=== PATIENT | female | born 1990 | race Caucasian/White ===

== ENCOUNTER 2016-06-28 10:56 | Outpatient (CLI) | payer OTHER ==
[2016-06-28 11:41] LABS: AMNI LOT 5540986
[2016-06-28 11:47] VITALS: BP 124/74
[2016-06-28 11:58] LABS: AMNI OBC PASS; AMNISURE NEGATIVE (NEGATIVE)
== END 2016-06-28 14:06 | disposition home or self-care (01) ==
LOC: LDOP 10:56
PROVIDERS: ATTEND Obstetrics & Gynecology
DX: O26.893 Other specified pregnancy related conditions, third trimester (principal); R10.9 Unspecified abdominal pain; R19.7 Diarrhea, unspecified; R11.0 Nausea; Z3A.36 36 weeks gestation of pregnancy; Z87.891 Personal history of nicotine dependence
CPT/HCPCS: 59025; 81001; 84112; 87086; 87324; 99211; G0463

== ENCOUNTER 2016-07-14 10:49 | Outpatient (CLI) | payer OTHER ==
[~2016-07-14] VITALS: Ht 172.7 cm; Wt 104.5 kg
[2016-07-14 11:25] VITALS: BP 127/84
== END 2016-07-14 13:00 | disposition home or self-care (01) ==
LOC: LDOP 10:49
PROVIDERS: ATTEND Obstetrics & Gynecology
DX: O26.893 Other specified pregnancy related conditions, third trimester (principal); R10.9 Unspecified abdominal pain; O62.9 Abnormality of forces of labor, unspecified; Z3A.39 39 weeks gestation of pregnancy
CPT/HCPCS: 59025; 81001; 87086; 99211; G0463

== ENCOUNTER 2016-07-21 01:38 | Outpatient (CLI) | payer OTHER ==
[~2016-07-21] VITALS: Ht 172.7 cm; Wt 104.5 kg
[2016-07-21 01:45] VITALS: BP 134/90
[2016-07-21] MEDS ORDERED: MEPERIDINE/PF 100 MG/ML IM PRN (02:00)
[2016-07-21] MEDS ORDERED: PROMETHAZINE 25 MG/ML, 1ML IM ONE (02:00)
[2016-07-21] MEDS ORDERED: MEPERIDINE/PF 100 MG/ML ONE (02:06)
[2016-07-21] MEDS ORDERED: PROMETHAZINE 25 MG/ML, 1ML ONE (02:06)
== END 2016-07-21 02:30 | disposition home or self-care (01) ==
LOC: LDOP 01:38
PROVIDERS: ATTEND Obstetrics & Gynecology
DX: O26.893 Other specified pregnancy related conditions, third trimester (principal); R10.9 Unspecified abdominal pain; O62.9 Abnormality of forces of labor, unspecified; Z3A.39 39 weeks gestation of pregnancy
CPT/HCPCS: 59025; 99211; J2175; J2550; G0463

== ENCOUNTER 2016-07-26 10:12 | Inpatient (IN) | payer OTHER ==
[~2016-07-26] VITALS: Ht 172.7 cm; Wt 104.5 kg
[2016-07-26 10:57] VITALS: BP 142/91
[2016-07-26 11:36] LABS: ASPARTATE AMINO TRANSFERASE 43 U/L (15-37); BLOOD UREA NITROGEN 11 mg/dL (7-18)
[2016-07-26] MEDS ORDERED: LIDOCAINE 1%, 20ML ONE (12:31)
[2016-07-26] MEDS ORDERED: NEWBORN KIT ONE (12:31)
[2016-07-26] MEDS ORDERED: MISOPROSTOL 200 MCG TABLET ONE (12:31)
[2016-07-26] MEDS ORDERED: OXYTOCIN 30U/ 0.9% NaCL 500ML 500 ML ONE (12:32)
[2016-07-26] MEDS ORDERED: OXYTOCIN 30U/ 0.9% NaCL 500ML 500 ML IV ONE (12:34)
[2016-07-26] MEDS ORDERED: FENTANYL PF 100 MCG/2ML IV PRN (13:00)
[2016-07-26] MEDS ORDERED: TERBUTALINE 1 MG/ML, 1ML IVPush PRN (13:00)
[2016-07-26] MEDS ORDERED: METOCLOPRAMIDE 5 MG/ML, 2ML IVPush PRN (13:00)
[2016-07-26] MEDS ORDERED: FENTANYL PF 100 MCG/2ML IVPush PRN (13:00)
[2016-07-26] MEDS ORDERED: ONDANSETRON 2MG/ML, 2ML IVPush PRN (13:00)
[2016-07-26] MEDS ORDERED: SODIUM CITRATE/CITRIC ACID 30 ML UDC PO PRN (13:00)
[2016-07-26] MEDS ORDERED: SODIUM CHLORIDE FLUSH 10ML SYR IVF PRN (13:00)
[2016-07-26] MEDS ORDERED: PREN1TAB69 PO (13:50)
[2016-07-26] MEDS: LACTATED RINGERS 1,000 ML IV SCH ×3 (16:43→17:38)
[2016-07-26] MEDS ORDERED: FENTANYL/BUPIV./NS/PF 250 ML EPIDCONT ONE (17:36)
[2016-07-26] MEDS ORDERED: FENTANYL/BUPIV./NS/PF 250 ML EPIDCONT SCH (17:38)
[2016-07-26 17:57] LABS: ASPARTATE AMINO TRANSFERASE 45 U/L (15-37); BLOOD UREA NITROGEN 10 mg/dL (7-18)
[2016-07-26] MEDS ORDERED: LACTATED RINGERS 1,000 ML IVBOLUS PRN (18:00)
[2016-07-26] MEDS ORDERED: EPHEDRINE 50 MG/ML, 1ML IVPush PRN (18:00)
[2016-07-26] MEDS ORDERED: NALOXONE 0.4 MG/ML, 1ML IVPush PRN (18:00)
[2016-07-26] MEDS: D5%-LACTATED RINGERS 1,000 ML IV SCH ×2 (20:34→23:09)
[2016-07-26] MEDS ORDERED: ONDANSETRON 2MG/ML, 2ML ONE (23:20)
[2016-07-27] MEDS ORDERED: FENTANYL PF 100 MCG/2ML ONE ×3 (01:08→06:49)
[2016-07-27] MEDS ORDERED: BUPIVACAINE/PF-EPI 0.25% 1:200K ONE (01:17)
[2016-07-27] MEDS: LACTATED RINGERS 1,000 ML IV SCH ×7 (01:38→22:40)
[2016-07-27] MEDS: D5%-LACTATED RINGERS 1,000 ML IV SCH (04:34)
[2016-07-27] MEDS ORDERED: PROMETHAZINE 25 MG/ML, 1ML IV PRN (07:00)
[2016-07-27] MEDS ORDERED: DIPH,PERTUSS(ACELL),TET VAC/PF NC IM-VACC PRN (07:00)
[2016-07-27] MEDS ORDERED: ALBUTEROL SULFATE 2.5 MG/3 ML NPPB PRN (07:00)
[2016-07-27] MEDS ORDERED: METOCLOPRAMIDE 5 MG/ML, 2ML ONE (07:00)
[2016-07-27] MEDS ORDERED: ONDANSETRON 2MG/ML, 2ML IVPush PRN (07:00)
[2016-07-27] MEDS ORDERED: morphine SULFATE 10 MG/ML, 1ML IVPush PRN ×2 (07:00)
[2016-07-27] MEDS ORDERED: HYDROmorphone 1 MG/ML, 1ML IV PRN (07:00)
[2016-07-27] MEDS: KETOROLAC 30 MG/1 ML IV SCH ×3 (07:00→20:00)
[2016-07-27] MEDS ORDERED: MEPERIDINE/PF 25MG/0.5ML IVPush PRN (07:00)
[2016-07-27] MEDS ORDERED: FENTANYL PF 100 MCG/2ML IV PRN (07:00)
[2016-07-27] MEDS ORDERED: OXYcodone 5 MG/5 ML ORAL.SOL UDC PO PRN (07:00)
[2016-07-27] MEDS ORDERED: EPHEDRINE 50 MG/ML, 1ML IVPush PRN (07:00)
[2016-07-27] MEDS ORDERED: hydrALAzine 20 MG/ML, 1ML IV PRN (07:00)
[2016-07-27] MEDS ORDERED: CALCIUM CARBONATE 500 MG TAB.CHEW PO PRN (07:00)
[2016-07-27] MEDS ORDERED: HYDROcodone/APAP 7.5-325MG/15ML UDC PO PRN (07:00)
[2016-07-27] MEDS ORDERED: ACETAMINOPHEN 325 MG TABLET PO PRN ×2 (07:00)
[2016-07-27] MEDS ORDERED: SODIUM CITRATE/CITRIC ACID 30 ML UDC ONE (07:00)
[2016-07-27] MEDS ORDERED: ONDANSETRON 2MG/ML, 2ML IV PRN (07:00)
[2016-07-27] MEDS ORDERED: MISOPROSTOL 200 MCG TABLET PR PRN (07:00)
[2016-07-27] MEDS ORDERED: LABETALOL 5MG/ML, 20ML IV PRN (07:00)
[2016-07-27] MEDS ORDERED: MEASLES,MUMPS&RUBELLA VACC/PF 0.5 ML SQ-VACC PRN (07:00)
[2016-07-27] MEDS ORDERED: OXYcodone/APAP 5/325MG TABLET PO PRN ×2 (07:00)
[2016-07-27] MEDS ORDERED: HYDROmorphone 2 MG/ML, 1ML ONE (07:35)
[2016-07-27] MEDS ORDERED: OXYTOCIN 30U/ 0.9% NaCL 500ML 500 ML IV SCH (08:54)
[2016-07-27] MEDS: PRENATAL VIT/IRON/FA 1 EACH TABLET PO SCH (09:00)
[2016-07-27] MEDS ORDERED: OXYTOCIN 30U/ 0.9% NaCL 500ML 500 ML ONE (09:29)
[2016-07-27] MEDS: OXYTOCIN 30U/ 0.9% NaCL 500ML 500 ML IV SCH ×2 (09:37→16:40)
[2016-07-27] MEDS ORDERED: morphine SULFATE 10 MG/ML, 1ML ONE (09:42)
[2016-07-27 10:10] VITALS: BP 132/90
[2016-07-27] MEDS ORDERED: KETOROLAC 30 MG/1 ML ONE (10:41)
[2016-07-27] MEDS ORDERED: ONDANSETRON 2MG/ML, 2ML ONE (10:41)
[2016-07-27 12:05] VITALS: BP 111/69
[2016-07-27 16:30] VITALS: BP 117/76
[2016-07-27] MEDS: HYDROcodone/APAP 5/325 TABLET PO PRN ×2 (17:06→21:30)
[2016-07-27 20:00] VITALS: BP 122/81
[2016-07-27] MEDS: DOCUSATE 100 MG CAPSULE PO PRN (20:00)
[2016-07-27] MEDS: SIMETHICONE 80 MG CHEW TAB PO PRN (20:00)
[2016-07-28 00:15] VITALS: BP 125/80
[2016-07-28] MEDS: KETOROLAC 30 MG/1 ML IV SCH ×4 (01:39→21:34)
[2016-07-28] MEDS: HYDROcodone/APAP 5/325 TABLET PO PRN ×5 (01:39→19:47)
[2016-07-28] MEDS: OXYTOCIN 30U/ 0.9% NaCL 500ML 500 ML IV SCH ×3 (02:40→22:40)
[2016-07-28] MEDS: LACTATED RINGERS 1,000 ML IV SCH ×6 (02:40→22:40)
[2016-07-28 07:31] VITALS: BP 117/74
[2016-07-28] MEDS: DOCUSATE 100 MG CAPSULE PO PRN ×2 (07:43→19:47)
[2016-07-28] MEDS: PRENATAL VIT/IRON/FA 1 EACH TABLET PO SCH (07:44)
[2016-07-28 19:45] VITALS: BP 135/87
[2016-07-28] MEDS: SIMETHICONE 80 MG CHEW TAB PO PRN (19:47)
[2016-07-29] MEDS: HYDROcodone/APAP 5/325 TABLET PO PRN ×2 (00:05→05:27)
[2016-07-29] MEDS: KETOROLAC 30 MG/1 ML IV SCH (03:03)
[2016-07-29] MEDS: SIMETHICONE 80 MG CHEW TAB PO PRN ×3 (05:27→23:29)
[2016-07-29] MEDS: LACTATED RINGERS 1,000 ML IV SCH ×3 (06:40→14:40)
[2016-07-29 08:00] VITALS: BP 128/79
[2016-07-29] MEDS: OXYTOCIN 30U/ 0.9% NaCL 500ML 500 ML IV SCH (08:40)
[2016-07-29] MEDS: PRENATAL VIT/IRON/FA 1 EACH TABLET PO SCH (09:00)
[2016-07-29] MEDS: IBUPROFEN 600 MG TABLET PO PRN ×3 (09:50→23:24)
[2016-07-29] MEDS: DOCUSATE 100 MG CAPSULE PO PRN ×2 (09:50→20:38)
[2016-07-29] MEDS ORDERED: OXYcodone 5 MG/5 ML ORAL.SOL UDC PO ONE (13:00)
[2016-07-29] MEDS: OXYcodone IR 5MG TABLET PO PRN ×2 (16:07→20:38)
[2016-07-29 19:15] VITALS: BP 128/84
[2016-07-30] MEDS: OXYcodone IR 5MG TABLET PO PRN ×3 (01:01→09:11)
[2016-07-30] MEDS: IBUPROFEN 600 MG TABLET PO PRN (05:35)
[2016-07-30 07:48] VITALS: BP 125/70
[2016-07-30] MEDS: DOCUSATE 100 MG CAPSULE PO PRN (08:15)
[2016-07-30] MEDS: PRENATAL VIT/IRON/FA 1 EACH TABLET PO SCH (08:15)
[2016-07-30] MEDS ORDERED: IBUP800T PO (09:50)
[2016-07-30] MEDS ORDERED: DOCU-30 PO (09:52)
[2016-07-30] MEDS ORDERED: OXYC5CAP4 PO (09:54)
== END 2016-07-30 11:26 | disposition home or self-care (01) | DRG 765 ==
LOC: LDOP 10:12 → LDIP 12:20 → 2NW 07-27 10:07
PROVIDERS: ADMIT Obstetrics & Gynecology; ATTEND Obstetrics & Gynecology
PROC: 0T9B70Z Drainage of Bladder with Drainage Device, Via Natural or Artificial Opening (ICD-10-PCS; 2016-07-26)
PROC: 10D00Z1 Extraction of Products of Conception, Low, Open Approach (ICD-10-PCS; principal; 2016-07-27)
DX: O13.4 Gestational [pregnancy-induced] hypertension without significant proteinuria, complicating childbirth (principal); O98.42 Viral hepatitis complicating childbirth; B15.9 Hepatitis A without hepatic coma; Z37.0 Single live birth; O62.1 Secondary uterine inertia; O99.62 Diseases of the digestive system complicating childbirth; K52.9 Noninfective gastroenteritis and colitis, unspecified; O77.0 Labor and delivery complicated by meconium in amniotic fluid; Z3A.39 39 weeks gestation of pregnancy; Z88.5 Allergy status to narcotic agent
CPT/HCPCS: 36415; 80053; 81003; 82248; 82570; 82803; 84156; 84550; 85025; 86704; 86706; 86708; 86803; 86850; 86900; 87340; J1170; J1885; J2405; J3010; J2270; J2590; J2765; J7120; J7121

== ENCOUNTER 2018-07-29 10:23 | Emergency (ER) | payer OTHER ==
[~2018-07-29] VITALS: Ht 172.7 cm; Wt 76.2 kg
[~2018-07-29 10:23] MED LIST: DOCU-131 PO; IBUP-1223 PO; OXYC5CAP2 PO; PREN1TAB69 PO
[2018-07-29] MEDS ORDERED: MAALOX/HYOSCYAMINE/LIDOCAINE 45 ML BTL ONE (10:44)
[2018-07-29] MEDS ORDERED: ALBUTEROL/IPRATROPIUM 2.5MG/0.5MG, 3 ML ONE (10:53)
[2018-07-29 11:00] LABS: HCG UR SG 1.008 (1.003-1.030); MICROSCOPIC NOT IND
[2018-07-29] MEDS ORDERED: MAALOX/HYOSCYAMINE/LIDOCAINE 45 ML BTL PO ONE (11:00)
[2018-07-29] MEDS ORDERED: ALBUTEROL/IPRATROPIUM 2.5MG/0.5MG, 3 ML NPPB ONE (11:00)
[2018-07-29 11:02] LABS: BASOPHILS # (AUTO) 0.04 x10^3/uL (0-0.1); BASOPHILS % (AUTO) 1 % (0-1); EOSINOPHILS # (AUTO) 0.08 x10^3/uL (0-0.4); EOSINOPHILS % (AUTO) 2 % (1-7); LYMPHOCYTES # (AUTO) 0.99 x10^3/uL (1-3.4); LYMPHOCYTES % (AUTO) 18 % (22-44); MD NO; MEAN CORPUSCULAR HEMOGLOBIN 29.9 pg (27.0-34.8); MEAN CORPUSCULAR HGB CONC 33.2 g/dL (32.4-35.8); MEAN PLATELET VOLUME 8.1 fL (7.4-10.4); MONOCYTES # (AUTO) 0.36 x10^3/uL (0.2-0.8); MONOCYTES % (AUTO) 7 % (2-9); NEUTROPHILS # (AUTO) 3.97 x10^3/uL (1.8-6.8); NEUTROPHILS % (AUTO) 73 % (42-75); PLATELET COUNT 234 x10^3/uL (130-400); RED BLOOD COUNT 4.26 x10^6/uL (3.82-5.3); RED CELL DISTRIBUTION WIDTH 13.4 % (9.6-15.2)
[2018-07-29 11:03] LABS: CULTURE INDICATED? NO
[2018-07-29 11:13] LABS: ALANINE AMINOTRANSFERASE 27 U/L (12-78); ALBUMIN 3.9 g/dL (3.4-5.0); ANION GAP 6 mmol/L (5-15); CALCIUM 8.3 mg/dL (8.5-10.1); CHLORIDE 106 mmol/L (98-107); CREATININE 0.86 mg/dL (0.55-1.02)
[2018-07-29 11:15] LABS: ALKALINE PHOSPHATASE 68 U/L (45-117); BILIRUBIN,TOTAL 0.5 mg/dL (0.2-1.0)
--- NOTE | 2018-07-29 11:42 | NUR ---
Pt resting in bed, states pain improved after GI cocktail. Pt denies other needs.
[2018-07-29 12:44] VITALS: BP 98/66
== END 2018-07-29 12:55 | disposition home or self-care (01) ==
LOC: ED 11:17
DX: K29.00 Acute gastritis without bleeding (principal)
CPT/HCPCS: 36415; 76700; 80053; 81003; 81025; 83690; 85025; 99284

== ENCOUNTER 2019-02-21 19:38 | Emergency (ER) | payer OTHER ==
[~2019-02-21] VITALS: Ht 172.7 cm; Wt 72.4 kg
[2019-02-21 21:43] VITALS: BP 104/54
--- NOTE | 2019-02-21 21:44 | NUR ---
VERONIKA STATED THERE HAS BEEN A STRONG ODOR FROM VAGINA. SHE THINKS SHE MAY HAVE FORGOT TO REMOVE A TAMPON A MONTH AGO. SHE IS IN ROOM. RESTING IN BED. BOYFRIEND WITH HER. CALL LIGHT WITHIN REACH
== END 2019-02-21 22:24 | disposition home or self-care (01) ==
LOC: ED 22:01
DX: T19.2XXA Foreign body in vulva and vagina, initial encounter (principal); N76.0 Acute vaginitis; B96.89 Other specified bacterial agents as the cause of diseases classified elsewhere
CPT/HCPCS: 99283